=== PATIENT | female | born 1965 | race Caucasian/White ===

== ENCOUNTER 2024-09-20 13:36 | Outpatient (OUT) | payer MEDICAID, SELFPAY ==
--- NOTE | 2024-09-20 13:38 | MM_ITS ---
Patient Name: LIZZETH RIVERS MR#: [id number] : 1965 Exam Date: 09/20/2024 Ordering Doctor: DANNY DEWITT . RADIOLOGY REPORT PROCEDURE: MM TOMOSYNTHESIS SCREENING BI COMPARISON: MG MAMM SCREEN CHELITA W CAD, 09/21/2018. MG MAMM CHELITA SCRN W CAD DIG, 09/04/2015. MG MAMM CHELITA SCRN W CAD DIG, 03/06/2013. INDICATIONS: Screening Calculator Name NCI Breast Cancer Risk Assessment Tool 5 Year Breast Cancer Risk 1.00% Lifetime Breast Cancer Risk 5.50% Personal Breast Cancer No Personal Ovarian Cancer No Treatments None Family Cancers Sister with uterine cancer at age 41; Father with throat cancer at age 56; Grandfather-paternal with lung cancer at age ~60. LOCATION: [facility] BREAST COMPOSITION: There are scattered areas of fibroglandular density. FINDINGS: DIAGNOSTIC CATEGORY 1--NEGATIVE. NO CHANGE FROM COMPARISON ASSESSMENT. RIGHT BREAST: No significant suspicious finding. LEFT BREAST: No significant suspicious finding. RECOMMENDATIONS: ROUTINE MAMMOGRAM AND CLINICAL EVALUATION IN 12 MONTHS. PLEASE NOTE: A NORMAL MAMMOGRAM DOES NOT EXCLUDE THE POSSIBILITY OF BREAST CANCER. A CLINICALLY SUSPICIOUS PALPABLE LUMP SHOULD BE BIOPSIED. Dictated by: Spike Archibald DO on 09/20/2024 at 14:28 Approved by: Spike Archibald DO on 09/20/2024 at 14:35
== END 2024-09-20 13:37 | disposition home or self-care (01) ==
LOC: MAMMO 13:36
PROVIDERS: PCP Nurse Practitioner; Visit Provider Nurse Practitioner
DX: Z12.31 Encounter for screening mammogram for malignant neoplasm of breast (principal); Z01.419 Encounter for gynecological examination (general) (routine) without abnormal findings; F17.200 Nicotine dependence, unspecified, uncomplicated; Z68.38 Body mass index [BMI] 38.0-38.9, adult; Z80.8 Family history of malignant neoplasm of other organs or systems; Z80.1 Family history of malignant neoplasm of trachea, bronchus and lung
CPT/HCPCS: 77063; 77067